=== PATIENT | female | born 1995 | race American Indian/Alaskan Native ===

== ENCOUNTER 2018-07-01 12:14 | Emergency (ER) | payer SELFPAY ==
[2018-07-01 12:27] VITALS: BP 112/66; PULSE 79; RESP 20; TEMP 98.6; O2SAT 98
[2018-07-01] MEDS ORDERED: Amoxicillin-Clav 875-125 mg Tab PO STA (13:07)
--- NOTE | 2018-07-01 13:09 | C.PDOC ---
History Of Present Illness 23 y/o female presents to the ED for evaluation of right earache, developing for the past few days. Patient describes the ear feeling clogged, initially onset after flying back from [place]. Additionally patient reports having cold symptoms, including runny nose and nasal congestion, for the past week. Otherwise she denies any headache, cough, dizziness, or vertigo. Time Seen by Provider: 07/01/18 12:48 Chief Complaint (Nursing): ENT Problem History Per: Patient History/Exam Limitations: None Onset/Duration Of Symptoms: Days Current Symptoms Are (Timing): Still Present Past Medical History Reviewed: Historical Data, Nursing Documentation, Vital Signs Vital Signs: Last Vital Signs Temp 98.6 F 07/01/18 12:23 Pulse 79 07/01/18 12:23 Resp 20 07/01/18 12:23 BP 112/66 07/01/18 12:23 Pulse Ox 98 07/01/18 12:23 - Medical History PMH: No Chronic Diseases Surgical History: No Surg Hx Family History: States: No Known Family Hx - Social History Hx Alcohol Use: Yes Hx Substance Use: Yes - Immunization History Hx Tetanus Toxoid Vaccination: No Hx Influenza Vaccination: No Hx Pneumococcal Vaccination: No Review Of Systems Except As Marked, All Systems Reviewed And Found Negative. Constitutional: Negative for: Fever, Chills ENT: Positive for: Ear Pain, Nose Discharge, Nose Congestion, Other (Ear "clogged" sensation) Respiratory: Negative for: Cough, Shortness of Breath Gastrointestinal: Negative for: Vomiting, Diarrhea Neurological: Negative for: Weakness, Numbness, Headache, Dizziness Physical Exam - Physical Exam Appears: Well, Non-toxic, No Acute Distress Skin: Normal Color, Warm, Dry, No Rash Head: Normacephalic Eye(s): bilateral: PERRL Ear(s): Left: Normal, Right: Other ( lfuid level noted behing TM, canal normal, no edmea,no erythema, no discharge. NO mastoid tenderness.) Nose: No Flaring, No Discharge, Other (mild paranasal sinus tenderness, no edema, no erythema B/L.) Oral Mucosa: Moist Tongue: Normal Appearing Lips: Normal Appearing Throat: No Erythema, No Drooling Neck: Normal ROM, Trachea Midline, Supple Cardiovascular: Rhythm Regular, No Murmur, No JVD Respiratory: No Decreased Breath Sounds, No Accessory Muscle Use, No Stridor, No Wheezing Gastrointestinal/Abdominal: Soft, No Tenderness Extremity: Normal ROM, No Deformity, No Swelling Neurological/Psych: Oriented x3, Normal Speech ED Course And Treatment O2 Sat by Pulse Oximetry: 98 (RA) Pulse Ox Interpretation: Normal Progress Note: On re-eval, pt is afebriole, hemodynamicaly stable. Non-toxic. PulseOx 98% RA. ENT: exam c/w Right serous OM. NO mastoid tenderness B/L. neck: Supple, (-) meningeal sign. Lungs: CTA B/L, BS equal B/L. Neurologicaly intact. Pt advised. ref. to F/u with ENT In 2-3 days for re-eval. return if any new changes Disposition Counseled Patient/Family Regarding: Diagnosis, Need For Followup, Rx Given - Disposition Referrals: Shine Maher MD [Staff Provider] - Disposition: HOME/ ROUTINE Disposition Time: 13:08 Condition: STABLE Additional Instructions: Encourage fluids Take medication as prescribed Follow up with ENT in2-3 days for re-evaluation. return to Ed if any worsening or new changes. Prescriptions: Amoxicillin/Clavulanate [Augmentin 875 MG-125 MG] 1 tab PO BID #14 tab Oxymetazoline 0.05% [Oxymetazoline HCl 30 Ml] 1 spray NS BID #1 bottle Prednisone [Deltasone] 20 mg PO DAILY #6 tablet Instructions: Serous Otitis Media Forms: [employer] ([place]), Work Excuse - Clinical Impression Clinical Impression: Otitis media - PA / [employer] / Resident Statement MD/DO has reviewed & agrees with the documentation as recorded. - Scribe Statement The provider has reviewed the documentation as recorded by the Scribe (Kadi Phillips) All medical record entries made by the Scribe were at my direction and personally dictated by me. I have reviewed the chart and agree that the record accurately reflects my personal performance of the history, physical exam, medical decision making, and the department course for this patient. I have also personally directed, reviewed, and agree with the discharge instructions and disposition.
[2018-07-01] MEDS ORDERED: Amoxicillin-Clav 875-125 mg Tab PO ONE (13:20)
[2018-07-01 13:31] LABS: SQUAMOUS EPITHIAL 31 /hpf (0-5); URINE BACTERIA RARE (<OCC); URINE BILIRUBIN NEGATIVE (NEGATIVE); URINE BLOOD 2+ (NEGATIVE); URINE CLARITY Hazy (Clear); URINE COLOR Yellow (YELLOW); URINE GLUCOSE (UA) NORMAL (Normal); URINE LEUKOCYTE ESTERASE 1+ Leu/uL (Negative); URINE PROTEIN NEGATIVE (NEGATIVE); URINE UROBILINOGEN NORMAL mg/dL (0.2-1.0)
== END 2018-07-01 14:30 | disposition home or self-care (01) ==
LOC: C.ER 12:14
DX: H66.91 Otitis media, unspecified, right ear (principal)